=== PATIENT | female | born 1975 | race Caucasian/White ===

== ENCOUNTER 2016-11-14 05:01 | Inpatient (IN) | payer MEDICAID ==
[2016-11-14] MEDS ORDERED: ACETAMINOPHEN 325 MG/TAB TABLET PO PRN ×2 (05:02→11:52)
[2016-11-14] MEDS ORDERED: BUTORPHANOL 1 MG/ML VIAL IV PRN (05:02)
[2016-11-14] MEDS ORDERED: LR 1,000 ML IV SCH ×2 (05:02→18:47)
[2016-11-14] MEDS ORDERED: LR 500 ML IV PRN ×2 (05:02→11:38)
[2016-11-14] MEDS ORDERED: SODIUM CHLORIDE 0.9% 3 ML FLUSH FLUSH PRN ×2 (05:02→11:52)
[2016-11-14] MEDS ORDERED: Aluminum;Magnesium;Simethicone 30 ML UDC PO PRN (05:02)
[2016-11-14] MEDS ORDERED: OXYTOCIN 1,000 ML IV SCH (05:02)
[2016-11-14] MEDS ORDERED: SODIUM CHLORIDE 0.9% 3 ML FLUSH FLUSH SCH ×3 (05:02→18:00)
[2016-11-14 05:39] LABS: AUTOMATED BASOPHIL 1.2 % (0-2); AUTOMATED EOSINOPHIL 1.3 % (0-5); AUTOMATED LYMPH 13.1 % (17-44); AUTOMATED MONOCYTE 8.6 % (3-10); AUTOMATED NEUTROPHIL 75.8 % (45-76); MPV 10.5 fL (7.4-10.4)
[2016-11-14] MEDS ORDERED: Vaccine Screening Complete SCH (06:00)
--- NOTE | 2016-11-14 07:37 | HISTPHYS ---
- HISTORY OF PRESENT ILLNESS Age: 41 Estimated Due Date: 11/21/16 Gestational Age: 39 : 9 Para: 7 Patient Presents to:: Labor & Delivery Presents for:: Induction of Labor Current : No Complications, GBS - - REVIEW OF SYSTEMS Reports/Denies: Reports: Contractions (Mild and irregular), Movement ( Normal ). Denies: Complaints, Vaginal Bleeding, Leaking Fluid, Fever Pain: Reports: None - ALLERGIES Allergies Allergy/AdvReac Type Severity Reaction Status Date / Time ciprofloxacin [From Cipro] Allergy Mild PARALYSIS Verified 11/14/16 05:15 ciprofloxacin HCl Allergy Mild PARALYSIS Verified 11/14/16 05:15 [From Cipro] erythromycin base Allergy Mild Diarrhea Verified 11/14/16 05:15 [Erythromycin Base] FISH DYE Allergy See Uncoded 11/14/16 05:15 Comments - PAST MEDICAL HISTORY Reports: No Significant History - PAST SURGICAL HISTORY Reports: Dilation & Curettage, Laproscopy - FAMILY HISTORY Family History: Noncontributory - SOCIAL HISTORY Travel Outside of [place] in the Last 3 Months?: No Smoking Status: Never smoker Social History: Denies: Alcohol Use Marital Status: - GENITOURINARY HISTORY Gynecologic History: Reports: None HX : 9 Para: 7 Live Deliveries (# of pregnancies resulting in a live ): 7 1 Infant Sex: Male Delivery Type: Vaginal Weeks Gestation: 40 - PHYSICAL EXAM Vital Signs:: Temperature: 98.4 F (11/14/16 05:29) HR: 99 (11/14/16 05:29) RR: 20 (11/14/16 05:29) BP: 131/83 (11/14/16 05:29) Pulse Ox: () GENERAL: Alert, Oriented, No Acute Distress ABDOMEN: Gravid, Non-Distended, Non-Tender, Soft Fundal Height (cm): 38 GENITOURINARY: Normal. negative: Lesions, Mass, Rash, Swelling, Discharge MUSCULOSKELETAL: Normal. negative: Atrophy EXTERMITIES: Moves All Extremeties. negative: Pain/Tenderness Dilation (cm): 2 Effacement (%): 60 Station: -3 Heart Rate: 150 Reactive, Moderate Variability. negative: Decelerations Contractions: Irregular Membranes: AROM Amniotic Fluid: Clear - ASSESSMENT (ACTIVE PROBLEMS) (1) Elective induction of labor planned Acute [id number] - (2) 39 weeks gestation of Acute Z3A.39 - 39 WEEKS GESTATION OF - PLAN Admit, High Dose Pitocin (Pt counseled on the risks of prematurity as well as hyperstimulation with distress and emergent . )
[2016-11-14] MEDS ORDERED: LIDOCAINE 1% 30 ML VIAL (PRESERVATIVE FREE) ONE (08:07)
[2016-11-14] MEDS ORDERED: Fentanyl/Bupivacaine 100 ML EPI ONE (10:53)
[2016-11-14] MEDS ORDERED: METOCLOPRAMIDE 10 MG/2 ML VIAL IV PRN (11:38)
[2016-11-14] MEDS ORDERED: EPHEDrine 50 MG/ML VIAL IV PRN (11:38)
[2016-11-14] MEDS ORDERED: NALOXONE 0.4 MG/ML AMPULE IV PRN (11:38)
[2016-11-14] MEDS ORDERED: LR 500 ML IV ONE (11:38)
[2016-11-14] MEDS ORDERED: DIPHENHYDRAMINE 50 MG/ML VIAL IV PRN (11:38)
[2016-11-14] MEDS ORDERED: ONDANSETRON HCL 4 MG/2 ML VIAL IV PRN (11:38)
--- NOTE | 2016-11-14 11:38 | HIM.ANES ---
Anesthesia Evaluation & Plan Diagnoses: labor pain Consented Procedure: labor epidural Surgeon:: Refugio Johnson - Focused Review of Systems Now: Yes Cardiac History: No: Hx Hypertension, Hx Cardiac Disorders EKG Rhythm: Sinus Rhythm HEENT: No: Other HEENT Problems Gastrointestinal: No: Hx Gastrointestinal Disorders Neurological/Musculoskeletal: No: Hx Neurological Disorders Psychological: No Hx Mental/Emotional Disorders Blood/Autoimmune: No: Hx Anemia Smoking Status: Never smoker Past Social History: Denies: Alcohol Use Other Surgical History: 1999 laparoscopic- ovarian cyst - Focused Physical Exam NPO since: after Midnight Neck: Full Range of Motion Cardiovascular/Chest: Normal (RRR no mumurs or rubs.) Respiratory: Lungs clear. negative: Rhonchi, Wheezing Any relatives with a history of Malignant Hyperthermia?: No Other: Problem List Problem Status Onset 39 weeks gestation of Acute Elective induction of labor planned Acute Incomplete Acute Incomplete with delayed or excessive hemorrhage Acute Missed Acute Palpitations Acute CBC/BMP/Other 11/14/16 05:15 Allergies Allergy/AdvReac Type Severity Reaction Status Date / Time ciprofloxacin [From Cipro] Allergy Mild PARALYSIS Verified 11/14/16 05:15 ciprofloxacin HCl Allergy Mild PARALYSIS Verified 11/14/16 05:15 [From Cipro] erythromycin base Allergy Mild Diarrhea Verified 11/14/16 05:15 [Erythromycin Base] FISH DYE Allergy See Uncoded 11/14/16 05:15 Comments Home Medications Medication Instructions Recorded Last Taken Type No Home Medications 08/02/16 Unknown History Height and Weight Patient's height 5 ft 9 in Patient's weight 83.461 kg BMI 20.0 Vital Signs Temperature 98.4 F 11/14/16 05:29 Pulse Rate 99 11/14/16 05:29 Respiratory Rate 20 11/14/16 05:29 Blood Pressure 131/83 11/14/16 05:29 Pulse Oxygen Saturation METS - Level of Activity: Climbing stairs(1 flight),walking level ground, running short distance - Anesthetic Plan Anesthesia Type: Epidural ASA Class: 2 -: I have examined this patient and reviewed the medical record. The patient has been assessed prior to anesthesia. Risks and benefits of anesthesia and anesthetic technique options have been discussed and all questions answered. The patient accepts the risk and desires me to proceed with the planned anesthetic.
--- NOTE | 2016-11-14 11:42 | HIM.ANESP ---
Procedure Note DATE OF PROCEDURE: 11/14/16 PREOPERATIVE DIAGNOSIS: Labor Pain Control. POSTOPERATIVE DIAGNOSIS: Same PROCEDURE: Epidural PERFORMING PROVIDER: Kashif Hager CRNA, Patterson, Elena O MD DIAGNOSIS: Labor SURGEON: Alex TIME OUT: 1108 Anesthesia START time: 1102 Anesthesia STOP (Delivery) Time : MEDICATIONS: INF Bupivacaine 0.125% + Fentanyl 3mcg/ml ml/hr NEEDLE: Tuohy 17G STERILE BARRIERS: sterile x 3, mask, sterile gloves. APPROACH: Midline ATTEMPTS: Multiple COMPLICATIONS: None. BLOOD LOSS: 0 cubic centimeters. PROCEDURE FINDINGS AND TECHNIQUE: At the request of the patient and packing room supervisor , an Epidural Block was performed for labor pain relief. Epidural Risk, benefits and alternatives of the procedure were explained and questions answered. Informed consent was obtained, confirmed with patient and on chart. Time out was performed. Contraction, Pulse oximetry, EKG and BP monitoring were established. The patient is a LLD position and lumbar area was prepped and draped in a sterile manner. Skin anesthesia was obtained with 1% Xylocaine infiltration. The Epidural was done in the usual manner. A Tuohy needle was inserted with loss of resistance to NS @ 5cm. Local anesthetic was injected in incremental volumes with negative aspirations throughout, Bolus dose: Lidocaine 1 % 5 cc. There was no pain on injection. Epidural catheter threaded 5 cm into epidural space. Test dose Lidocaine 1.5 % with epinephrine 1:200,000, 3 ml via epidural catheter. Negative test dose. SaO2 98% EKG SR Loading Dose 0 mcg/ml Fentanyl Infusing Dose Bupivacaine 0.125% + Fentanyl 3mcg/ml ml/hr See Watch Child Record (chart) Patient tolerated the procedure well without complications.
--- NOTE | 2016-11-14 11:50 | OBDELNOTE ---
Delivery Note - Problem/Diagnosis (1) 39 weeks gestation of Status: Acute (2) Vaginal delivery Status: Acute - Admitting Diagnosis Reason for Visit: Induction of Labor Admission Date: 11/14/16 Admission time: 05:10 Gestational Age: 39 - Procedures Procedure(s): None Labor Anesthesia/Analgesia: Epidural Date: 11/14/16 Time: 11:40 Spontaneous Vaginal Delivery Presentation: Vertex Episiotomy: None Laceration: None EBL: 200 Fluid: Clear Placenta: Spontaneous Description: Normal - Procedures Procedures: None - Infant Data Order: Ayala Infant Sex: Male Weight: 3.232 kg (1min): 8 (5min): 9 Feeding Plans for Infant: Breast Plans Circumcision: No Complications: No Complications to:: LDRP/Mother's Room - /Operative Complications /Op Complications: None Discharge Planning - REASON FOR ADMISSION Patient Presents to:: Labor & Delivery Reason for Visit: Induction of Labor - DISCHARGE INSTRUCTIONS Prescriptions: Hydrocodone Bit/Acetaminophen [Lortab 5/325] 1 - 2 tab PO Q4H PRN #30 tab PRN Reason: Pain Ibuprofen Tablet [Motrin] 800 mg PO Q6-8H PRN #30 tab PRN Reason: Pain
--- NOTE | 2016-11-14 11:51 | PCM.DCS92 ---
- Primary/Secondary Discharge Diagnoses (1) 39 weeks gestation of Acute Z3A.39 - 39 WEEKS GESTATION OF Present on Admission: Yes (2) Vaginal delivery Acute O80 - ENCOUNTER FOR FULL-TERM UNCOMPLICATED DELIVERY Present on Admission: No - HOSPITAL COURSE /Op Complications: None - DISCHARGE INSTRUCTIONS Discharge Disposition: Home Discharge Condition: Good Cognitive Discharge Status: Unimpaired Fuctional Discharge Status: Independent Patient Leaving with Prescriptions?: Yes Home Medications/ New Prescriptions: New Hydrocodone Bit/Acetaminophen [Lortab 5/325] 1 - 2 tab PO Q4H PRN #30 tab PRN Reason: Pain Ibuprofen Tablet [Motrin] 800 mg PO Q6-8H PRN #30 tab PRN Reason: Pain - Diet Diet at Discharge: Regular - Activity Activity: Pelvic Rest, No Driving No Driving for: While using pain medications - Instructions Call Physician for: Severe Abdominal Cramps, Pain/Redness in Calf/Leg, Soaking Pad in 1 hr, Temperature Above 100.4 - Incision Incision, Lacerations, or Tears: No - DC Summary Notes Discharge Medications: *See "Discharge Medication List" for a complete list of Home Medications and Discharge Medications.* Obstetric Hospital Course - Admitting Diagnosis Reason for Visit: Induction of Labor Admission Date: 11/14/16 Admission time: 05:10 Gestational Age: 39 - Procedures Procedure(s): None Labor Anesthesia/Analgesia: Epidural Date: 11/14/16 Time: 11:40 Spontaneous Vaginal Delivery Presentation: Vertex Episiotomy: None Laceration: None EBL: 200 Fluid: Clear Placenta: Spontaneous Description: Normal - Procedures Procedures: None - Infant Data Order: Ayala Infant Sex: Male Weight: 3.232 kg (1min): 8 (5min): 9 Feeding Plans for Infant: Breast Plans Circumcision: No Complications: No Complications to:: LDRP/Mother's Room - /Operative Complications /Op Complications: None
[2016-11-14] MEDS ORDERED: LANOLIN OINTMENT 0.25 OZ TUBE TOP PRN (11:52)
[2016-11-14] MEDS ORDERED: OXYTOCIN 1,000 ML IV ONE (11:52)
[2016-11-14] MEDS ORDERED: HYDROCORTISONE 25 MG SUPP PR PRN (11:52)
[2016-11-14] MEDS ORDERED: BISACODYL 10 MG SUPP PR PRN (11:52)
[2016-11-14] MEDS ORDERED: DIBUCAINE OINTMENT 1 OZ TUBE TOP PRN (11:52)
[2016-11-14] MEDS ORDERED: OXYCODONE HCL 5 MG TABLET PO PRN (11:52)
[2016-11-14] MEDS ORDERED: Pharmacy Order Set Alert SCH (12:00)
[2016-11-14] MEDS ORDERED: Fentanyl/Bupivacaine 100 ML EPI SCH (12:00)
[2016-11-14] MEDS: IBUPROFEN 800 MG TAB PO SCH ×3 (12:36→23:51)
[2016-11-14] MEDS ORDERED: LIDOCAINE 2% 10 ML (PRESERVATIVE FREE) VIAL INF ONE (16:23)
[2016-11-15] MEDS: IBUPROFEN 800 MG TAB PO SCH ×3 (06:22→18:01)
--- NOTE | 2016-11-15 07:53 | OBGYNPROG ---
- Subjective Post Day: 1 Reports: Ambulating, Out of Bed, Tolerating Regular Diet, Voiding Freely, Passing Flatus, Moderate Lochia, Well. Denies: Nausea, Vomitting , Chest Pain, Shortness of Breath Pain: Reports: Well Managed, Abdominal, Back Patient states that she feels very tired and weak. - Objective Vital Signs: Last Vital Signs Temp 97.6 F 11/15/16 06:50 Pulse 77 11/15/16 06:50 Resp 16 11/15/16 06:50 BP 122/74 11/15/16 06:50 Pulse Ox General: Alert, Oriented, No Acute Distress Cardiovascular/Chest: Normal Respiratory: Normal - CTA ABDOMEN: Bowel Sounds Present, Non-Distended, Non-Tender, Soft Fundus: U - 1, Firm Bladder: Voiding & Emptying EXTERMITIES: Denies: Edema, Cyanosis, Clubbing OBGYN Progress Note Progress Note: Laboratory Results - last 24 hr 11/14/16 11/15/16 05:15 06:30 Hgb 10.6 L Hct 32.0 L RPR Nonreactive - ASSESSMENT (1) care following vaginal delivery Status: Acute Code(s): Z39.2 - ENCOUNTER FOR ROUTINE FOLLOW-UP - PLAN Routine Care, Supportive Care
[2016-11-16 06:30] VITALS: BP 113/69; PULSE 78; TEMP 98
--- NOTE | 2016-11-16 07:38 | OBGYNPROG ---
- Subjective Post Day: 2 Reports: Ambulating, Out of Bed, Tolerating Regular Diet, Voiding Freely, Moderate Lochia, Abdominal Cramping. Denies: Dizziness, Headache, Nausea, Vomitting, Palpitations, Chest Pain, Shortness of Breath Pain: Reports: Abdominal (wont take any pain meds, even motrin.) - Objective Vital Signs: Last Vital Signs Temp 98.0 F 11/16/16 06:29 Pulse 78 11/16/16 06:29 Resp 18 11/16/16 06:29 BP 113/69 11/16/16 06:29 Pulse Ox H&H Results 11/15/16 11/14/16 06:30 05:15 Hgb 10.6 L 11.2 L Hct 32.0 L 33.2 L General: Alert, Oriented, No Acute Distress Cardiovascular/Chest: Normal Respiratory: Normal - CTA ABDOMEN: Non-Tender, Soft Fundus: Firm. Denies: Tender EXTERMITIES: Moves All Extremeties SHILPA'S SIGN: Denies: Bilateral OBGYN Progress Note - ASSESSMENT (1) care following vaginal delivery Status: Acute Code(s): Z39.2 - ENCOUNTER FOR ROUTINE FOLLOW-UP - PLAN Routine Care, Discharge (instructions given), Supportive Care
[2016-11-16] MEDS: IBUPROFEN 800 MG TAB PO SCH (15:09)
== END 2016-11-16 17:31 | disposition home or self-care (01) | DRG 775 ==
LOC: MASU 05:01
PROVIDERS: ADMIT Obstetrics & Gynecology; ATTEND Obstetrics & Gynecology
PROC: 10E0XZZ Delivery of Products of Conception, External Approach (ICD-10-PCS; principal; 2016-11-14)
PROC: 10907ZC Drainage of Amniotic Fluid, Therapeutic from Products of Conception, Via Natural or Artificial Opening (ICD-10-PCS; 2016-11-14)
PROC: 10907ZC Drainage of Amniotic Fluid, Therapeutic from Products of Conception, Via Natural or Artificial Opening (ICD-10-PCS; 2016-11-14)
PROC: 3E0S3CZ (ICD-10-PCS; 2016-11-14)
DX: O80 Encounter for full-term uncomplicated delivery (principal); Z37.0 Single live birth; Z3A.39 39 weeks gestation of pregnancy
CPT/HCPCS: 59400; 81002; 85014; 85018; 85025; 86592; 86850; 86900; 86901; 96361; 96365; 96366; J2001; J2590; J3490